=== PATIENT | female | born 2000 ===

== ENCOUNTER 2018-07-07 10:07 | Day surgery (SDC) | payer MEDICAID ==
[2018-07-06 11:29] VITALS: BMI 20.7
[2018-07-07 10:57] VITALS: O2SAT 100
[2018-07-07] MEDS ORDERED: Propofol 10 mg/ml Inj (20 ML) ONE ×2 (10:59→11:14)
[2018-07-07] MEDS ORDERED: Lactated Ringer's 500 ML IV SCH (11:00)
[2018-07-07 11:37] VITALS: TEMP 96.8
[2018-07-07 13:14] VITALS: BP 103/67; PULSE 77; RESP 14
== END 2018-07-07 12:40 | disposition home or self-care (01) ==
LOC: C.ENDO 10:07
PROVIDERS: ATTEND Internal Medicine Gastroenterology
DX: K29.50 Unspecified chronic gastritis without bleeding (principal); K20.9 Esophagitis, unspecified; R10.13 Epigastric pain
CPT/HCPCS: 43239; 84703; 88305; 88313; 88342; J2704; J7120